=== PATIENT | female | born 1955 | race Caucasian/White ===

== ENCOUNTER 2021-01-19 10:34 | Emergency (ER) | payer OTHER ==
[~2021-01-19] VITALS: Ht 165.1 cm; Wt 68.9 kg
[~2021-01-19 10:34] MED LIST: IBUPROFEN600 MG PO
== END 2021-01-19 13:50 | disposition home or self-care (01) ==
LOC: ER1 10:34
DX: Z23 Encounter for immunization (principal); U07.1 COVID-19
CPT/HCPCS: 96374; 99283; J2405; M0243